=== PATIENT | male | born 1970 | race Caucasian/White ===

== ENCOUNTER 2019-01-05 11:43 | Emergency (ER) | payer SELFPAY ==
[~2019-01-05] VITALS: Ht 170.2 cm; Wt 80.0 kg
[2019-01-05] MEDS ORDERED: SODIUM CHLORIDE 0.9% 1,000 ML IV ONE (12:04)
[2019-01-05] MEDS ORDERED: LORAZEPAM 2MG/ML CPJ IV ONE (12:15)
[2019-01-05 12:57] LABS: CHLORIDE 111 mEq/L (98-107)
[2019-01-05 13:17] LABS: ETHANOL BLOOD 412 mg/dL
[2019-01-05 13:32] LABS: *AMPHETAMINES SCREEN URINE NEGATIVE (NEGATIVE); *BARBITURATES SCREEN URINE NEGATIVE (NEGATIVE); *BENZODIAZEPINES SCREEN URINE PRESUMTIVE POSITIVE (NEGATIVE); *COCAINE SCREEN URINE NEGATIVE (NEGATIVE)
[2019-01-05 13:33] LABS: CANNABINOID URINE SCREEN NEGATIVE (NEGATIVE); METHADONE URINE SCREEN NEGATIVE (NEGATIVE); OPIATES URINE SCREEN NEGATIVE (NEGATIVE); PHENCYCLIDINE URINE SCREEN NEGATIVE (NEGATIVE)
[2019-01-05 13:35] LABS: HEMATOCRIT. 32.2 % (42.0-52.0); HEMOGLOBIN. 10.4 g/dL (14.0-18.0); RED BLOOD CELL COUNT 3.57 mill/uL (4.7-6.1)
[2019-01-05 13:36] LABS: MEAN CORPUSCULAR HEMOGLOBIN 29.2 pg (28.0-32.0)
[2019-01-05 13:37] LABS: RED CELL DISTRIBUTION WIDTH 21.6 % (11.6-14.6)
[2019-01-05 13:41] LABS: LYMPHOCYTES % 49.8 % (20.0-50.0); MEAN PLATELET VOLUME 10.4 fl (7.4-10.4); MONOCYTES % 8.4 % (2.0-8.0); NEUTROPHILS % 36.6 % (40.0-76.0)
[2019-01-05 13:42] LABS: BASOPHILS % 0.9 % (0.0-2.0); EOSINOPHILS % 4.3 % (0.0-5.0)
[2019-01-05 16:01] VITALS: BP 111/61
[2019-01-09 17:37] LABS: PLATELET 32 x1000/uL (130-400)
== END 2019-01-05 17:42 | disposition left against medical advice (07) ==
LOC: ER 11:43
DX: F10.129 Alcohol abuse with intoxication, unspecified (principal); Y90.8 Blood alcohol level of 240 mg/100 ml or more
CPT/HCPCS: 36415; 80053; 80305; 80320; 85025; 96361; 96374; 99283; J2060; J7030; Z7610; G0480